=== PATIENT | male | born 1975 | race Asian ===

== ENCOUNTER 2019-08-02 14:34 | Emergency (ER) | payer OTHER ==
[~2019-08-02] VITALS: Ht 162.6 cm; Wt 68.0 kg
[2019-08-02 14:41] VITALS: Ht 162.6 cm; Wt 68.0 kg
[2019-08-02 15:21] LABS: BASOPHIL % 0.4 % (0-2); PLATELET COUNT 212 x10^3mcL (130-400); RED CELL DISTRIBUTION WIDTH 13.5 % (11.5-14.5)
[2019-08-02 15:30] LABS: CALCIUM 9.4 mg/dL (8.5-10.1); CARBON DIOXIDE 27.1 mmol/L (21-32); CHLORIDE SERUM 101 mmol/L (98-107); CREATININE SERUM 1.1 mg/dL (0.7-1.3); GFR1 > 60 mL/min; GLUCOSE SERUM 130 mg/dL (74-106); POTASSIUM SERUM 4.5 mmol/L (3.5-5.1); SODIUM SERUM 136 mmol/L (136-145)
[2019-08-02 15:34] LABS: ALBUMIN 4.2 g/dL (3.4-5.0); ALKALINE PHOSPHATASE 64 U/L (46-116); ALT/SGPT 38 U/L (16-63); AST/SGOT 30 U/L (15-37); BILIRUBIN TOTAL 0.55 mg/dL (0.20-1.00); LIPASE 106 IU/L (73-393)
[2019-08-02 15:35] LABS: TOTAL PROTEIN, SERUM 8.3 g/dL (6.4-8.2)
[2019-08-02 18:15] VITALS: BP 122/84
== END 2019-08-02 18:15 | disposition home or self-care (01) ==
LOC: ED 14:34
DX: N20.0 Calculus of kidney (principal)
CPT/HCPCS: J2270; J2405; J7030